=== PATIENT | male | born 2000 | race African-American/Black ===

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

== ENCOUNTER 2025-01-21 18:09 | Emergency (ER) | payer OTHER, SELFPAY ==
[2025-01-21 18:13] VITALS: BP 187/114; PULSE 97; RESP 18; TEMP 36.1; O2SAT 98; BMI 36.0
--- NOTE | 2025-01-22 00:06 | ED.BACK ---
HPI - Back Pain/Injury General Chief Complaint: Back Pain/Injury Stated Complaint: Back Pain Radiating Down Legs Time Seen by Provider: 01/21/25 23:04 Source: patient History of Present Illness HPI Narrative: 24-year-old male with no prior lumbar surgeries or injuries or injections, 2 days ago was trying to break up a fight between 2 large dogs, involving his jumping over a 4-5 foot fence, and falling over, mother was apparently injured in the same event, he was evaluated at emergency department along with his mother after the injury, given an oral antibiotic for puncture wound to his right hand, some swelling since that wound, did not have any medication sent to pharmacy, complains of increasing low back pain. Hurts to walk. No numbness or tingling to legs. No incontinence of urine or stool. Related Data Previous Rx's Medication Instructions Recorded amoxicillin 875 mg-potassium 1 tab PO BID #14 tabs 01/22/25 clavulanate 125 mg tablet cyclobenzaprine 10 mg tablet 10 mg PO TID #20 tabs 01/22/25 naproxen 500 mg tablet 500 mg PO BID 7 days #14 tabs 01/22/25 Allergies Allergy/AdvReac Type Severity Reaction Status Date / Time No Known Drug Allergies Allergy Verified 01/21/25 18:13 Patient History Social History Smoking Status: Former smoker Smoking Status: Former smoker alcohol intake frequency: 0-2 drinks per day Exam Narrative Exam Narrative: GENERAL: Well-developed patient, in mild distress. Uncomfortable appearing standing position leaning over gurney due to low back pain. HEAD: Atraumatic. Normocephalic. EYES: Pupils equal round and reactive. Extraocular motions intact. No scleral icterus. No injection or drainage. ENT: Nose without bleeding, purulent drainage. Throat without erythema, tonsillar hypertrophy or exudate. Airway patent. NECK: Trachea midline. Non tender CARDIOVASCULAR: Regular rate and rhythm without murmurs, gallops, or rubs. RESPIRATORY: Clear to auscultation. Breath sounds equal bilaterally. No wheezes, rales, or rhonchi. GASTROINTESTINAL: Abdomen soft, non-tender, nondistended. EXTREMITIES: Some dorsal hand swelling, puncture 4th MCP area, no expressible fluid in that area, no lymphangitic streaking proximal. Can fully extend his hand and close hand. BACK: Nontender without deformity or crepitance. No flank tenderness. Superficial scratches to left paraspinous area. No midline or paraspinous muscular tenderness. NEURO: AOx3. SKIN: No rash or erythema of visible areas Initial Vital Signs Initial Vital Signs: Vital Signs Temperature 97.0 F L 01/21/25 18:13 Pulse Rate 97 H 01/21/25 18:13 Respiratory Rate 18 01/21/25 18:13 Blood Pressure 187/114 H 01/21/25 18:13 Pulse Oximetry 98 01/21/25 18:13 Oxygen Delivery Method Room Air 01/21/25 18:13 Course Orders Ordered: ED Orders 01/22/25 00:10 XR hand RT min 3V Stat 01/22/25 00:11 CT lumbar spine wo con Stat Discontinued Medications Hydrocodone Bitart/Acetaminophen (Hydrocodone/Acet 5/325 Tablet) 1 tab PO NOW ONE Stop: 01/22/25 00:08 Last Admin: 01/22/25 00:13 Dose: 1 tab Documented By: ALICIA Hydrocodone Bitart/Acetaminophen (Hydrocodone/Acet 5/325 Prepack) 1 bottle MISC DIRECTED ONE Stop: 01/22/25 01:41 Last Admin: 01/22/25 01:52 Dose: 1 bottle Documented By: ALICIA Amoxicillin/Clavulanate Potassium (Amoxicillin/Clav 875/125 Mg) 1 tab PO NOW ONE Stop: 01/22/25 00:11 Last Admin: 01/22/25 00:16 Dose: 1 tab Documented By: ALICIA Cyclobenzaprine HCl (Cyclobenzaprine 10 Mg Tablet) 10 mg PO NOW ONE Stop: 01/22/25 00:08 Last Admin: 01/22/25 00:14 Dose: 10 mg Documented By: ALICIA Cyclobenzaprine HCl (Cyclobenzaprine 10 Mg Prepack) 1 bottle MISC DIRECTED ONE Stop: 01/22/25 01:42 Last Admin: 01/22/25 01:52 Dose: 1 bottle Documented By: ALICIA Diphtheria/Tetanus/Acell Pertussis (Tet,Diph,Pertuss(Acell),Vac/Pf 0.5 Ml Syringe) 0.5 ml IM .ONCE ONE Stop: 01/22/25 00:08 Last Admin: 01/22/25 01:36 Dose: Not Given Documented By: ALICIA Naproxen (Naproxen 250 Mg Tablet) 500 mg PO NOW ONE Stop: 01/22/25 00:08 Last Admin: 01/22/25 00:14 Dose: 500 mg Documented By: ALICIA Vital Signs Vital signs: Vital Signs - 8 hr 01/22/25 01:47 Pulse Rate 68 Respiratory Rate 19 Blood Pressure 141/90 H Pulse Oximetry 99 MDM - Back Pain/Injury Imaging Data Extremity x-ray #1: Radiologist's Impression: [address] [address] XRay Report Signed Patient: Jordan Cabezas MR#: [id number] : 2000 Acct:[id number] Age/Sex: 24 / M Date of Service: 01/22/25 Loc: ED Accession Number: [id number] Procedure: XR hand RT min 3V Ordering Provider: Ilir Ayala MD PROCEDURE: XR HAND RT MIN 3V INDICATIONS: dogbite puncture Sat night, eval for FB/fx TECHNIQUE: 3 views of the hand(s) acquired. COMPARISON: None. FINDINGS AND IMPRESSION: No acute displaced fracture or dislocation is seen. No radiopaque foreign body or suspicious soft tissue calcifications. If there is high concern for occult injury, consider repeat radiography or cross-sectional imaging. Dictated by: Russel Meek M.D. on 01/22/2025 at 0:35 Approved by: Russel Meek M.D. on 01/22/2025 at 0:35 CT lumbar spine: Radiologist's Impression: [address] [address] [address] Scan Report Signed Patient: Jordan Cabezas MR#: [id number] : 2000 Acct:[id number] Age/Sex: 24 / M Date of Service: 01/22/25 Loc: ED Accession Number: [id number] Procedure: CT lumbar spine wo con Ordering Provider: Ilir Ayala MD PROCEDURE: CT LUMBAR SPINE WO CON INDICATIONS: low back pain,trauma TECHNIQUE: Noncontrast 3 mm thick sections acquired from the T12 level to the sacrum. Sagittal and coronal reformats were constructed. For radiation dose reduction, the following was used: automated exposure control. COMPARISON: None. FINDINGS: Image quality: Diagnostic Bones: Vertebral body heights are well maintained. No traumatic subluxation identified. Nonacute appearing bone fragment is seen inferior to the L5 spinous process. No high-grade degenerative changes identified. Soft tissues: No paravertebral fluid collection identified. IMPRESSION: No acute fracture or traumatic subluxation of the lumbar spine. No high-grade degenerative changes. If there is high concern for further derangement, consider MRI evaluation. Dictated by: Russel Meek M.D. on 01/22/2025 at 0:49 Approved by: Russel Meek M.D. on 01/22/2025 at 0:52 MDM Narrative Medical decision making narrative: 24-year-old male involved with dog fight 2 days ago between their own dogs, both of which are vaccinated against rabies, neither suspected clinically to have rabies, sustained puncture wound to the right hand, given an oral antibiotic but apparently not prescribed any discharge antibiotic. Did not receive tetanus update, last DT more than 5 years ago. He prefers no injections but might be willing to have tetanus, ordered. He prefers oral antibiotics, oral Augmentin, prescription sent to his pharmacy. DDx of his lumbar pain consider lumbar strain, fracture, other. DDx hand swelling after dog bite consider cellulitis, eval for retained FB, eval for fx. Regarding his low back pain, he feels like he is having too much pain to be able to walk. Does not want injectable medications. Does not want IV placed at this time. He would like low back imaging. CT lumbar spine ordered noncontrast. Oral naproxen, cyclobenzaprine, hydrocodone/APAP. Patient has night home with girlfriend at bedside. Right hand x-ray series, no obvious fracture or foreign body. See radiology report. CT lumbar spine noncontrast, no acute changes. See radiology report. Further prescription for Augmentin sent to his pharmacy. Further prescription for cyclobenzaprine muscle relaxant and naproxen sent to pharmacy. Home pack hydrocodone/APAP. Home pack cyclobenzaprine. Recheck advised with PCP in the next couple of days for review of low back pain symptoms and hand dog bite puncture wound reassessment. Home with significant other. Discharge Plan Departure Patient Disposition: Home Clinical Impression: Lumbar strain, Puncture wound to hand, Injury caused by dog bite Instructions: DI for Low Back Pain Activity Restrictions/Additional Instructions: Dog bite injury fall from a fence with back pain and puncture to the right hand. X-ray right hand without obvious fracture or retained tooth or other foreign material. Augmentin (amoxicillin/clavulanic acid) antibiotic started, 1st dose in the emergency department, prescription sent for further doses to your pharmacy. Advised wound check in 2 days of your right hand with your regular doctor in clinic. Dogs involved with bite injury reportedly fully vaccinated, apparently no reported concern for rabies/exposure. Regarding your back pain you had significant pain, requested imaging. CT lumbar spine did not show any significant acute changes. Likely soft tissue injury. Trial of cyclobenzaprine muscle relaxant, hydrocodone/acetaminophen opiate analgesic, naproxen anti-inflammatory pain medication. Doses given in the emergency department. Further prescription naproxen sent to your pharmacy. Home pack of hydrocodone/acetaminophen and cyclobenzaprine muscle relaxant provided. Recheck advised with your regular provider in the next couple of days. Return to this/nearest emergency department for any change worsening symptoms or any concerns prior. Prescriptions: New amoxicillin-pot clavulanate 875-125 mg tablet 1 tab PO BID Qty: 14 0RF naproxen 500 mg tablet 500 mg PO BID 7 Days Qty: 14 0RF cyclobenzaprine 10 mg tablet 10 mg PO TID Qty: 20 0RF Referrals: Chato Porras MD [Primary Care Provider] - Stand Alone Forms: Patient Portal/API/Survey
--- NOTE | 2025-01-22 00:10 | DI.RAD.S_ITS ---
PROCEDURE: XR HAND RT MIN 3V INDICATIONS: dogbite puncture Sat night, eval for FB/fx TECHNIQUE: 3 views of the hand(s) acquired. COMPARISON: None. FINDINGS AND IMPRESSION: No acute displaced fracture or dislocation is seen. No radiopaque foreign body or suspicious soft tissue calcifications. If there is high concern for occult injury, consider repeat radiography or cross-sectional imaging. Dictated by: Russel Meek M.D. on 01/22/2025 at 0:35 Approved by: Russel Meek M.D. on 01/22/2025 at 0:35
--- NOTE | 2025-01-22 00:11 | DI.CT.S_ITS ---
PROCEDURE: CT LUMBAR SPINE WO CON INDICATIONS: low back pain,trauma TECHNIQUE: Noncontrast 3 mm thick sections acquired from the T12 level to the sacrum. Sagittal and coronal reformats were constructed. For radiation dose reduction, the following was used: automated exposure control. COMPARISON: None. FINDINGS: Image quality: Diagnostic Bones: Vertebral body heights are well maintained. No traumatic subluxation identified. Nonacute appearing bone fragment is seen inferior to the L5 spinous process. No high-grade degenerative changes identified. Soft tissues: No paravertebral fluid collection identified. IMPRESSION: No acute fracture or traumatic subluxation of the lumbar spine. No high-grade degenerative changes. If there is high concern for further derangement, consider MRI evaluation. Dictated by: Russel Meek M.D. on 01/22/2025 at 0:49 Approved by: Russel Meek M.D. on 01/22/2025 at 0:52
[2025-01-22] MEDS: HYDROCODONE/ACET 5/325 TABLET 1 TAB PO (00:13)
[2025-01-22] MEDS: NAPROXEN 250 MG TABLET 500 MG PO (00:14)
[2025-01-22] MEDS: CYCLOBENZAPRINE 10 MG TABLET PO (00:14)
[2025-01-22] MEDS: AMOXICILLIN/CLAV 875/125 MG 1 TAB PO (00:16)
[2025-01-22 01:47] VITALS: BP 141/90; PULSE 68; RESP 19; O2SAT 99
[2025-01-22] MEDS: HYDROCODONE/ACET 5/325 PREPACK 1 BOTTLE MISC (01:52)
[2025-01-22] MEDS: CYCLOBENZAPRINE 10 MG PREPACK 1 BOTTLE MISC (01:52)
== END 2025-01-22 01:59 | disposition home or self-care (01) ==
PROVIDERS: Emergency Provider Emergency Medicine; PCP Pediatrics
DX: S39.012A Strain of muscle, fascia and tendon of lower back, initial encounter (principal); S61.431A Puncture wound without foreign body of right hand, initial encounter; W54.0XXA Bitten by dog, initial encounter
CPT/HCPCS: 72131; 73130; 90471; 99283; 99284; 90715